=== PATIENT | female | born 1965 | race Caucasian/White ===

== ENCOUNTER → 2017-03-30 | Outpatient (CLI) | payer OTHER ==
[~2017-03-30] MED LIST: DIPH25CA PO; HYDR-3516 PO; LEVO.125 PO; MESA1TAB2 PO; ROSU1TAB4 PO
[2017-03-30 10:41] LABS: AUTOMATED NEUTROPHIL # 3.9 TH/MM3 (1.8-7.7); BASOPHIL # 0.1 TH/MM3 (0-0.2); EOSINOPHIL # 0.1 TH/MM3 (0-0.4); HEMATOCRIT 41.7 % (35.0-46.0); HEMO FLAGS DIFF FINAL; LYMPHOCYTE # 1.4 TH/MM3 (1.0-4.8); MEAN CELL VOLUME 90.9 FL (80.0-100.0); MEAN CORPUSCULAR HEMOGLOBIN 30.3 PG (27.0-34.0); MEAN CORPUSCULAR HGB CONC 33.3 % (32.0-36.0); MONO % 9.9 % (0.0-8.0); NEUT % 64.1 % (16.0-70.0); PLATELET COUNT 261 TH/MM3 (150-450); RED BLOOD COUNT 4.59 MIL/MM3 (4.00-5.30); WHITE BLOOD COUNT 6.1 TH/MM3 (4.0-11.0)
[2017-03-30 10:43] LABS: APTT (PATIENT) 26.6 SEC (24.3-30.1); INTERNATIONAL NORMALIZED RATIO 0.9 RATIO; PROTHROMBIN TIME - PATIENT 10.1 SEC (9.8-11.6)
[2017-03-30 10:46] LABS: BLOOD, URINE NEG (NEG); GLUCOSE,URINE NEG (NEG); KETONE, URINE NEG (NEG); NITRITE,URINE NEG (NEG); URINE COLOR LIGHT-YELLOW (YELLW/STRAW)
[2017-03-30 10:47] LABS: COMMENT (UR) CULT NOT INDICATED; CULTURE IF INDICATED CULT NOT INDICATED
[2017-03-30 11:22] LABS: ALT (GPT) 27 U/L (10-53); ANION GAP 7 MEQ/L (5-15); AST (GOT) 13 U/L (15-37); BICARBONATE 29.1 MEQ/L (21.0-32.0); BLOOD UREA NITROGEN 15 MG/DL (7-18); CHLORIDE 105 MEQ/L (98-107); GLOMERULAR FILTRATION RATE 78 ML/MIN (>89); POTASSIUM 3.6 MEQ/L (3.5-5.1); SODIUM (NA) 141 MEQ/L (136-145)
[2017-03-30 11:25] LABS: ALKALINE PHOSPHATASE 98 U/L (45-117); TOTAL BILIRUBIN ADULT 0.6 MG/DL (0.2-1.0)
--- NOTE | 2017-03-30 12:48 | RADRPT ---
EXAM DATE/TIME: 03/30/2017 10:55 [place] COMPARISON: No previous studies available for comparison. INDICATIONS : Evaluate for pneumonia, pneumothorax, or communicable disease. Pre-op, colon resection. MEDICAL HISTORY : Crohn's disease. SURGICAL HISTORY : None. ENCOUNTER: Initial ACUITY: 1 day PAIN SCORE: 0/10 LOCATION: Bilateral chest FINDINGS: PA and lateral views of the chest demonstrate the lungs to be symmetrically aerated without evidence of mass, infiltrate or effusion. The cardiomediastinal contours are unremarkable. Osseous structure s are intact. CONCLUSION: Negative for acute disease. Andrei Arguelles MD FACR on March 30, 2017 at 12:47 Board Certified Radiologist. This report was verified electronically.
== END ==
LOC: CPRE 09:41
PROVIDERS: ATTEND Colon & Rectal Surgery
DX: Z01.810 Encounter for preprocedural cardiovascular examination (principal); Z01.811 Encounter for preprocedural respiratory examination; Z01.812 Encounter for preprocedural laboratory examination; K52.9 Noninfective gastroenteritis and colitis, unspecified; K56.69 Other intestinal obstruction
CPT/HCPCS: 36415; 71020; 80053; 81001; 85025; 85610; 85730

== ENCOUNTER 2017-04-06 08:30 | Inpatient (IN) | payer OTHER ==
[~2017-04-06] VITALS: Ht 162.6 cm; Wt 73.2 kg
[~2017-04-06 08:30] MED LIST changes: -HYDR-3516 PO
[2017-04-13] MEDS ORDERED: POVIDONE IODINE 5% (ANTISEPSIS KIT) 4 APPLICATIONS EACH NARE PRN (06:15)
[2017-04-13] MEDS ORDERED: DEXT 5%-NACL 0.9% 1000 ML INJ 1,000 ML IV SCH (06:15)
[2017-04-13] MEDS ORDERED: INSULIN HUMAN REGULAR 1,000 UNITS/10 ML VIAL SQ PRN (06:15)
[2017-04-13] MEDS ORDERED: LACTATED RINGER'S 1000 ML IV PRN (06:15)
[2017-04-13] MEDS ORDERED: ceFAZolin 2 GM PREMIX 50 ML IV SCH (06:15)
[2017-04-13] MEDS ORDERED: SODIUM CHLORID 0.9% 500 ML IV PRN (06:15)
[2017-04-13] MEDS ORDERED: METOPROLOL TARTRATE 25 MG TAB PO PRN (06:15)
[2017-04-13] MEDS ORDERED: CHLORHEXIDINE GLUCONATE 2 % 1 PACK (2 CLOTHS) TOPICAL PRN (06:15)
[2017-04-13] MEDS ORDERED: ACETAMINOPHEN 1000 MG/100 ML 100 ML IV ONE (07:24)
[2017-04-13] MEDS ORDERED: HYDROmorphone HCL PF 2 MG/ML VIAL ONE (07:25)
[2017-04-13] MEDS ORDERED: SUGAMMADEX SODIUM 200 MG/2 ML VIAL IV PUSH ONE ×2 (07:25)
[2017-04-13] MEDS ORDERED: ARTIFICIAL TEARS OPTH OINT 3.5 APPLIC/3.5 GM TUBO ONE (07:25)
[2017-04-13] MEDS ORDERED: FAMOTIDINE 20 MG/2 ML VIAL ONE (07:25)
[2017-04-13] MEDS: METRONIDAZOLE 500 MG/100 ML ISONTONIC SOLN IV SCH ×2 (08:20→10:28)
--- NOTE | 2017-04-13 08:53 | PD.OP ---
Operative Report Date of Surgery: Apr 13, 2017 Preoperative Diagnosis: Crohn's disease Postoperative Diagnosis: Same Procedure: Cystoscopy with bilateral ureteral catheter insertion Anesthesia: GEOFF Surgeon: Jose A More Turner Machine Operator(s): None Resident Surgeon: None Operation and Findings: 52-year-old female with history of Crohn's disease to undergo exploratory laparotomy by Dr. Molina. Request for made for bilateral ureteral catheter insertion. Risk and benefits were discussed paraplegic is willing to proceed. Patient is brought to the operating room and placed in the dorsal lithotomy position. She is prepped and draped in usual sterile fashion received preprocedure antibiotics and general endotracheal tube anesthesia was administered. 22 Lithuanian scope was inserted in the bladder campbell cystoscopy did not reveal any abnormalities. Left ureteral orifice was identified and a 6 Lithuanian open-ended catheter inserted on the left side without difficulty this was again repeated on the right side with 5 Lithuanian open catheter. A Pereira catheter was then inserted and the catheters were attached to the Pereira catheter. She tolerated the procedure well. Jose A More DO Apr 13, 2017 08:53
[2017-04-13] MEDS ORDERED: LIDOCAINE HCL 1% 50 ML VIAL ONE (12:00)
[2017-04-13] MEDS ORDERED: PROPOFOL 200 MG/20 ML AMP IV ONE (12:00)
[2017-04-13] MEDS ORDERED: LACTATED RINGER'S 1000 ML INJ 2,000 ML IV ONE (12:00)
[2017-04-13] MEDS ORDERED: DEXAMETHASONE SOD PHOS 4 MG/ML VIAL IV ONE (12:00)
[2017-04-13] MEDS ORDERED: ONDANSETRON HCL 4 MG/2 ML VIAL IV PUSH ONE (12:00)
[2017-04-13] MEDS ORDERED: VECURONIUM BROMIDE 20 MG VIAL IV ONE (12:00)
[2017-04-13] MEDS ORDERED: SODIUM CHLORIDE 0.9% 20 ML VIAL IV ONE (12:00)
[2017-04-13] MEDS ORDERED: ceFAZolin INJ 1,000 MG VIAL IV ONE (12:00)
[2017-04-13] MEDS ORDERED: STERILE WATER FOR INJECTION 20 ML VIAL IV ONE (12:00)
[2017-04-13] MEDS ORDERED: ROCURONIUM INJ 50 MG/5 ML VIAL IV ONE (12:00)
[2017-04-13] MEDS ORDERED: MIDAZOLAM HCL 2 MG/2 ML VIAL IV ONE (12:00)
[2017-04-13] MEDS ORDERED: ESMOLOL HCL 100 MG/10 ML VIAL IV ONE (12:00)
[2017-04-13] MEDS ORDERED: NORMOSOL R INJ 1,000 ML IV ONE (12:00)
[2017-04-13] MEDS ORDERED: LABETALOL HCL 100 MG/20 ML VIAL IV ONE (12:00)
[2017-04-13] MEDS ORDERED: ceFAZolin INJ 1,000 MG VIAL ONE ×2 (13:06→16:56)
[2017-04-13] MEDS ORDERED: DO NOT ADM ANY ANTICOAGULANT DRUGS PRN (19:14)
[2017-04-13] MEDS ORDERED: ENALAPRILAT 1.25 MG/ML VIAL IV PRN (19:15)
[2017-04-13] MEDS ORDERED: ACETAMINOPHEN 325 MG TAB PO PRN (19:15)
[2017-04-13] MEDS ORDERED: ENALAPRILAT 2.5 MG/2 ML VIAL IV PRN (19:15)
[2017-04-13] MEDS ORDERED: POTASSIUM CHLOR 20 MEQ PREMIX 100 ML IV PRN (19:15)
[2017-04-13] MEDS ORDERED: SODIUM CHLORIDE 0.9% FLUSH 5 ML FLUSH IVF PRN (19:15)
[2017-04-13] MEDS ORDERED: BENZOCAINE 6 MG/MENTHOL 10 MG LOZENGE BUCCAL PRN (19:15)
[2017-04-13] MEDS ORDERED: POTASSIUM CHLOR 40 MEQ PREMIX 100 ML IV PRN (19:15)
[2017-04-13] MEDS ORDERED: NALOXONE HCL 0.4 MG/ML AMP IV PRN (19:15)
[2017-04-13] MEDS ORDERED: diphenhydrAMINE HCL 50 MG/ML VIAL IV PRN (19:15)
[2017-04-13] MEDS ORDERED: Post-op Orders (for Pharmacy) MISC XX ONE (19:15)
[2017-04-13] MEDS ORDERED: *morphine SULFATE 8 MG/ML PERIprocedure ONLY ONE (19:35)
[2017-04-13] MEDS ORDERED: *ONDANSETRON 4 MG VIAL PERIprocedural Use ONLY ONE (19:35)
[2017-04-13] MEDS ORDERED: D5-1/2 NS + KCL 20 MEQ INJ 1,000 ML ONE (19:38)
[2017-04-13] MEDS: D5-NS + KCL 20 MEQ INJ 1,000 ML IV SCH (19:55)
[2017-04-13] MEDS: metroNIDAZOLE 500 MG INJ 100 ML IV SCH (20:20)
[2017-04-13] MEDS: SODIUM CHLORIDE 0.9% FLUSH 5 ML FLUSH IVF SCH (20:20)
[2017-04-13] MEDS: MORPHINE SULFATE 30 MG/30 ML PCA IV SCH (20:24)
[2017-04-13 20:43] LABS: AUTOMATED NEUTROPHIL # 9.7 TH/MM3 (1.8-7.7); BASOPHIL % 0.1 % (0.0-2.0); HEMO FLAGS DIFF FINAL; LYMPH % 4.6 % (9.0-44.0); LYMPHOCYTE # 0.5 TH/MM3 (1.0-4.8); MEAN CELL VOLUME 90.5 FL (80.0-100.0); MEAN CORPUSCULAR HEMOGLOBIN 30.5 PG (27.0-34.0); MEAN CORPUSCULAR HGB CONC 33.7 % (32.0-36.0); MONO % 9.2 % (0.0-8.0); NEUT % 86.1 % (16.0-70.0); PLATELET COUNT 240 TH/MM3 (150-450); RED BLOOD COUNT 4.19 MIL/MM3 (4.00-5.30); RED CELL DISTRIBUTION WIDTH 14.2 % (11.6-17.2); WHITE BLOOD COUNT 11.3 TH/MM3 (4.0-11.0)
[2017-04-13 21:07] LABS: BICARBONATE 26.7 MEQ/L (21.0-32.0); POTASSIUM 3.6 MEQ/L (3.5-5.1)
[2017-04-14] VITALS (26 sets, daily range): BP systolic 104–127; BP diastolic 49–68; PULSE 69–99; RESP 12–20; TEMP 97.8–99.9; O2SAT 90–98
[2017-04-14] MEDS: D5-NS + KCL 20 MEQ INJ 1,000 ML IV SCH ×3 (02:40→22:40)
[2017-04-14] MEDS: metroNIDAZOLE 500 MG INJ 100 ML IV SCH ×2 (05:19→12:20)
[2017-04-14] MEDS: LEVOTHYROXINE SODIUM 125 MCG TAB PO SCH (05:20)
[2017-04-14 07:14] LABS: AUTOMATED NEUTROPHIL # 8.5 TH/MM3 (1.8-7.7); BASOPHIL # 0.1 TH/MM3 (0-0.2); BASOPHIL % 0.5 % (0.0-2.0); HEMATOCRIT 35.6 % (35.0-46.0); HEMO FLAGS DIFF FINAL; LYMPH % 11.4 % (9.0-44.0); LYMPHOCYTE # 1.3 TH/MM3 (1.0-4.8); MEAN CELL VOLUME 91.7 FL (80.0-100.0); MEAN CORPUSCULAR HEMOGLOBIN 30.4 PG (27.0-34.0); MEAN CORPUSCULAR HGB CONC 33.1 % (32.0-36.0); NEUT % 76.1 % (16.0-70.0); PLATELET COUNT 262 TH/MM3 (150-450); RED BLOOD COUNT 3.88 MIL/MM3 (4.00-5.30); WHITE BLOOD COUNT 11.2 TH/MM3 (4.0-11.0)
[2017-04-14 07:38] LABS: BICARBONATE 27.4 MEQ/L (21.0-32.0); POTASSIUM 3.6 MEQ/L (3.5-5.1)
[2017-04-14] MEDS: PCA - TOTAL MG MORPHINE DELIVERED PER SHIFT SCH ×3 (08:00→23:00)
[2017-04-14] MEDS: SODIUM CHLORIDE 0.9% FLUSH 5 ML FLUSH IVF SCH ×2 (09:00→21:00)
[2017-04-14] MEDS: PANTOPRAZOLE SODIUM 40 MG VIAL IVP SCH (09:08)
[2017-04-14] MEDS: MORPHINE SULFATE 30 MG/30 ML PCA IV SCH ×2 (09:09→17:31)
[2017-04-14] MEDS: ONDANSETRON HCL 4 MG/2 ML VIAL IV PRN ×2 (11:17→23:07)
--- NOTE | 2017-04-14 11:52 | HHI.PR ---
Subjective Remarks Nauseated. No vomiting. No BMs. Pain controlled. Objective Vital Signs Date Time Temp Pulse Resp B/P (MAP) Pulse Ox O2 Delivery O2 Flow Rate FiO2 04/14/17 11:16 90 18 124/57 (79) 96 04/14/17 10:00 90 04/14/17 09:09 18 04/14/17 09:00 86 04/14/17 08:00 88 04/14/17 07:45 99.8 95 20 109/58 (75) 96 04/14/17 07:00 86 04/14/17 06:00 82 04/14/17 05:00 84 04/14/17 04:00 69 04/14/17 03:00 74 04/14/17 03:00 98.6 83 12 112/49 (70) 94 04/14/17 01:00 98.6 80 14 104/56 (72) 95 04/14/17 00:00 76 15 106/57 (73) 95 Nasal Cannula 1 04/13/17 22:15 78 14 117/61 (79) 95 Nasal Cannula 1 04/13/17 21:30 81 12 110/61 (77) 95 Nasal Cannula 1 04/13/17 21:29 20 04/13/17 21:00 82 22 110/67 (81) 96 Nasal Cannula 1 04/13/17 20:30 82 9 117/63 (81) 96 Nasal Cannula 1 04/13/17 20:24 15 04/13/17 20:00 83 9 119/59 (79) 96 Nasal Cannula 3 04/13/17 19:45 83 10 110/56 (74) 95 Nasal Cannula 3 04/13/17 19:30 90 7 130/74 (92) 96 Nasal Cannula 3 04/13/17 19:26 98.0 95 10 123/71 (88) 94 Simple Mask 8 I/O 04/13/17 04/13/17 04/13/17 04/14/17 04/14/17 04/14/17 07:00 15:00 23:00 07:00 15:00 23:00 Intake Total 3100 ml 1367 ml Output Total 600 ml 350 ml Balance 2500 ml 1017 ml Intake Oral 240 ml IV Total 100 ml 1127 ml Other 3000 ml Output Urine Total 450 ml 350 ml Estimated Blood Loss 150 ml Result Diagram: 04/14/17 0457 04/14/17 0452 Objective Remarks VS-S Abd: soft,dressings dry Medications and IVs Stable POD#1 Left ureteral cath removed. Alfredito Dubois MD Apr 14, 2017 11:52
[2017-04-14] MEDS: HEPARIN SODIUM - SQ 10,000 UNITS/ML VIAL SQ SCH (17:30)
[2017-04-15] VITALS (17 sets, daily range): BP systolic 121–142; BP diastolic 68–88; PULSE 79–99; RESP 14–16; TEMP 98.2–99.3; O2SAT 88–92
[2017-04-15] MEDS: D5-NS + KCL 20 MEQ INJ 1,000 ML IV SCH ×2 (05:20→18:04)
[2017-04-15] MEDS: PCA - TOTAL MG MORPHINE DELIVERED PER SHIFT SCH (06:00)
[2017-04-15] MEDS: HEPARIN SODIUM - SQ 10,000 UNITS/ML VIAL SQ SCH ×2 (06:05→18:05)
[2017-04-15] MEDS: LEVOTHYROXINE SODIUM 125 MCG TAB PO SCH (06:05)
[2017-04-15 07:02] LABS: AUTOMATED NEUTROPHIL # 9.4 TH/MM3 (1.8-7.7); BASOPHIL % 0.3 % (0.0-2.0); EOSINOPHIL % 0.2 % (0.0-4.0); HEMATOCRIT 31.6 % (35.0-46.0); HEMO FLAGS DIFF FINAL; LYMPH % 7.3 % (9.0-44.0); LYMPHOCYTE # 0.8 TH/MM3 (1.0-4.8); MEAN CELL VOLUME 91.6 FL (80.0-100.0); MEAN CORPUSCULAR HEMOGLOBIN 30.3 PG (27.0-34.0); MEAN CORPUSCULAR HGB CONC 33.1 % (32.0-36.0); MONO % 9.7 % (0.0-8.0); NEUT % 82.5 % (16.0-70.0); PLATELET COUNT 201 TH/MM3 (150-450); RED BLOOD COUNT 3.44 MIL/MM3 (4.00-5.30); RED CELL DISTRIBUTION WIDTH 14.3 % (11.6-17.2); WHITE BLOOD COUNT 11.4 TH/MM3 (4.0-11.0)
[2017-04-15 07:17] LABS: POTASSIUM 4.2 MEQ/L (3.5-5.1)
[2017-04-15] MEDS: SODIUM CHLORIDE 0.9% FLUSH 5 ML FLUSH IVF SCH ×2 (09:00→21:00)
[2017-04-15] MEDS: ONDANSETRON HCL 4 MG/2 ML VIAL IV PRN (09:36)
[2017-04-15] MEDS: PANTOPRAZOLE SODIUM 40 MG VIAL IVP SCH (09:38)
--- NOTE | 2017-04-15 11:25 | HHI.PR ---
Subjective Remarks C/O nausea. No vomiting. No appetite. No BMs. Flat affect Objective Vital Signs Date Time Temp Pulse Resp B/P (MAP) Pulse Ox O2 Delivery O2 Flow Rate FiO2 04/15/17 10:00 80 04/15/17 09:00 82 04/15/17 08:00 98.7 96 16 142/86 (104) 91 04/15/17 08:00 84 04/15/17 07:00 80 04/15/17 06:00 88 04/15/17 05:00 84 04/15/17 04:00 86 04/15/17 03:00 99.3 96 16 127/75 (92) 91 04/15/17 03:00 86 04/15/17 02:00 84 04/15/17 01:00 86 04/15/17 00:00 88 04/14/17 23:00 93 04/14/17 23:00 97.9 95 20 127/68 (87) 90 04/14/17 23:00 24 04/14/17 22:00 88 04/14/17 21:00 88 04/14/17 20:49 92 Nasal Cannula 1.00 04/14/17 20:00 94 04/14/17 19:30 99.9 95 14 111/57 (75) 92 04/14/17 19:00 95 04/14/17 18:00 82 04/14/17 17:31 18 04/14/17 17:00 86 04/14/17 16:00 90 04/14/17 15:00 98.0 90 20 108/62 (77) 95 04/14/17 15:00 90 04/14/17 14:00 99 04/14/17 14:00 20 04/14/17 13:00 86 04/14/17 12:00 88 I/O 04/14/17 04/14/17 04/14/17 04/15/17 04/15/17 04/15/17 07:00 15:00 23:00 07:00 15:00 23:00 Intake Total 1367 ml 1660 ml 1740 ml Output Total 350 ml 1000 ml 275 ml Balance 1017 ml 660 ml 1465 ml Intake Oral 240 ml 360 ml 240 ml IV Total 1127 ml 1300 ml 1500 ml Output Urine Total 350 ml 1000 ml 275 ml Result Diagram: 04/15/17 0535 04/15/17 0535 Objective Remarks VS-S Abd: soft,dressings dry I&Os and labs -OK Assessment and Plan Assessment and Plan Stable POD#2 OOB,Decrease IVs, D/C [employer] for nausea, D/C tele and O2 Alfredito Dubois MD Apr 15, 2017 11:25
[2017-04-15] MEDS: ACETAMINOPHEN/HYDROcodone 325 MG/5 MG TAB PO PRN ×3 (11:44→23:48)
[2017-04-16] VITALS (9 sets, daily range): BP systolic 100–120; BP diastolic 55–72; PULSE 81–99; RESP 14–18; TEMP 98.3–99.5; O2SAT 88–94
[2017-04-16] MEDS: D5-NS + KCL 20 MEQ INJ 1,000 ML IV SCH (02:10)
[2017-04-16] MEDS: HEPARIN SODIUM - SQ 10,000 UNITS/ML VIAL SQ SCH ×2 (06:10→18:18)
[2017-04-16] MEDS: LEVOTHYROXINE SODIUM 125 MCG TAB PO SCH (06:10)
[2017-04-16 06:53] LABS: AUTOMATED NEUTROPHIL # 10.2 TH/MM3 (1.8-7.7); BASOPHIL % 0.2 % (0.0-2.0); EOSINOPHIL # 0.1 TH/MM3 (0-0.4); EOSINOPHIL % 0.5 % (0.0-4.0); HEMATOCRIT 30.3 % (35.0-46.0); HEMO FLAGS DIFF FINAL; LYMPH % 6.8 % (9.0-44.0); LYMPHOCYTE # 0.8 TH/MM3 (1.0-4.8); MEAN CELL VOLUME 91.5 FL (80.0-100.0); MEAN CORPUSCULAR HEMOGLOBIN 30.3 PG (27.0-34.0); MEAN CORPUSCULAR HGB CONC 33.1 % (32.0-36.0); MONO % 8.1 % (0.0-8.0); NEUT % 84.4 % (16.0-70.0); PLATELET COUNT 197 TH/MM3 (150-450); RED BLOOD COUNT 3.31 MIL/MM3 (4.00-5.30); RED CELL DISTRIBUTION WIDTH 14.2 % (11.6-17.2); WHITE BLOOD COUNT 12.1 TH/MM3 (4.0-11.0)
[2017-04-16 07:03] LABS: BICARBONATE 27.6 MEQ/L (21.0-32.0)
[2017-04-16] MEDS: ONDANSETRON HCL 4 MG/2 ML VIAL IV PRN ×2 (07:43→14:11)
[2017-04-16] MEDS: ACETAMINOPHEN/HYDROcodone 325 MG/5 MG TAB PO PRN ×3 (07:43→23:11)
[2017-04-16] MEDS: SODIUM CHLORIDE 0.9% FLUSH 5 ML FLUSH IVF SCH ×2 (09:00→21:00)
[2017-04-16] MEDS: PANTOPRAZOLE SODIUM 40 MG VIAL IVP SCH (10:47)
--- NOTE | 2017-04-16 12:17 | MP ---
cc: BATSHEVA MOLINA M.D., DATE OF SURGERY: April 13, 2017. PREOPERATIVE DIAGNOSIS 1. Crohn's disease. 2. Colon stricture. POSTOPERATIVE DIAGNOSIS 1. Crohn's disease. 2. Colon stricture. PROCEDURE 1. Robotic/laparoscopic extensive lysis of adhesions. 2. Robotic extended ascending colectomy with takedown of splenic flexure. 3. Robotic terminal ileum/cecal resection. SURGEON Batsheva Molina MD EARLY [employer] TEACHER Cristobal. ANESTHESIA General per ET tube. ESTIMATED BLOOD LOSS 150 ccs. 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 This has been followed for about 4 or 5 years and, with the chronic severe inflammation, became more and more concerning that this could not be evaluated for carcinoma. OPERATIVE COURSE The patient was brought to the operating room and placed in the supine position. After induction of general anesthesia, the patient was placed in Marvin stirrups and all bony prominences were carefully padded. Dr. More came in and performed cystoscopy with placement of bilateral ureteral catheters, please see his operative note for details. ' The camera port was then placed just below the umbilicus, this was a 10/12 port, placed under direct vision using the laparoscope. CO2 insufflation was then undertaken and a brief abdominal survey was performed, with nothing noted that would preclude the robotic approach. The patient had significant fat wrapping, as expected, along the length of the transverse colon and the terminal ileum, I was not really able to visualize the ascending colon very well at this point. The remainder of the trocars were placed as follows. Two 10/12 trocars were placed just above and inside the right and left superior anterior iliac spines. Two 8 da Paulino ports were placed equal distance between the lateral ports and the camera port, forming an arc facing cephalad. Adhesions of the omentum to the descending colon and abdominal wall were dissected free using electrocautery and the omentum was brought up-and-over the transverse colon. The patient was hydroplaned head slightly up and the robot was docked over the left shoulder. The omentum was pulled away from the transverse colon. Dissection continued in this plane until the lesser sac was entered on the left and dissection was continued up and around the splenic flexure. On the right side multiple attempts were made to enter the lesser sac but it was fused and so it was elected to just take that part of the mesentery with the bowel. At this point we had better visibility and the descending colon appeared free of disease. The ascending colon did as well but I was not sure whether or not there was enough length to make it worth while to perform two anastomoses, so dissection continued. The mesentery to the tranverse colon was then opened and the transverse mesocolon was divided using the vessel sealer, beginning at the mid transveres and working up and around the splenic flexure, freeing the splenic flexure.. This allowed free mobility of the distal transverse colon and proximal descending colon. Dissection then continued across the right side up to about half the distance over to the hepatic flexure. At this point the robot was undocked and re-docked over the right shoulder. The cecum and TI, which was noted to be quite diseased were then retracted cephalad and dissection was continued posteriorly, up to the level of the duodenum which was carefully dissected free from the undersurface of the transverse mesocolon. Dissection then continued laterally and the lateral peritoneal attachment of the cecum and ascending colon were then dissected free. I was able to get up and around the hepatic flexure but I had a lot of trouble getting the proximal transverse colon retracted so that I could adequately dissect this free. We were able to eventually do some of that dissection but I felt that perhaps a small incision in the right lower quadrant would assist us in finishing this dissection. The robot was undocked. A 10-12 cm transverse incision was made in the right lower quadrant incorporating the right middle port. Using electrocautery, dissection was carried down to the fascia of the anterior abdominal wall which was split the length of the skin incision. The lateral fibers of the rectus abdominis muscle were then divided using electrocautery and the posterior fascia/peritoneum was divided the length of the skin incision. Multiple attempts were made to do further freeing of the proximal transverse without much success. Eventually I elected to go ahead and proceed with my resection of the TI. A site was chosen for division of the ileum ,just proximal to the area of inflammation. The mesentery was divided at this level using the vessel sealer and a DESI 60 stapling device was placed across the bowel at this level. A site was chosen for division of the ascending colon, just proximal to the cecum. The mesentery was cleared and a reload of the DESI stapler was placed across the bowel at this level. The intervening mesentery was serially divided using 0 Vicryl ties. The antimesenteric corners of the staple line were then removed. One limb of the gastrointesstinal stapler was placed down each limb of the bowel. This was closed along the antimesenteric border, fired, and removed, thus creating an enteroenterotomy. The resulting enterotomy was closed transversely with the DESI 60 stapling device. A simple stay suture was placed at the distal end of the anastomosis. At this point, however, it was not clear whether we would still have enough length to pull the remaining colon over to the descending colon and we elected to go back to a minimally invasive approach. The wound was closed in two layers using 0 Vicryl suture and a Tegaderm was placed over the wound. CO2 insufflation was resumed and after evaluation I did not feel that the amount of tension that would be necessary to bring this over warranted maintaining this very short segment of bowel, so I elected to proceed with resection of that segment of bowel. The robot was re-docked over the right shoulder and the mesentery of the hepatic flexure and descending colon was divided using the vessel sealer. A site was chosen for division of the small bowel just proximal and the DESI stapler was placed across the bowel at this level. The specimen was then tucked into the right lower quadrant for further retrieval. The small bowel then came over and lay nicely against the descending colon. Three stay sutures were placed with 0 Silk suture, two proximally, on either side of the proposed staple line, and one 8-9 cm distally, to align the bowel appropriately for the anastomosis. Incisions were made in the bowel using electrocautery and the echelon Endo stapler was placed, one limb down each limb of the bowel. This was closed on the antimesenteric border, fired, and removed, thus creating an enteroenterotomy. A reload of the stapler was brought onto the field and was placed across the bowel, proximal to the main part of the anastomosis but distal to the previous enterotomies. This was closed, held for 30 seconds, fired and removed. A second load was necessary to transect the bowel. There was noted to be a small amount of bleeding on the edge of the anastomosis which was controlled using electrocautery and stopped fairly quickly. The anastomosis was evaluated and lay nicely without tension and was widely patent. A simple stay suture was placed in the distal end using 0 Vicryl suture. The peritoneal cavity was copiously irrigated with warm normal saline. The omentum was brought down to lay over the anastomosis and Lily was dusted over the omentum and the anastomosis, as she had some oozing through the inflammatory tissue. All dissection beds were examined with no sign of any significant bleeding. A wound bag was placed in the peritoneal cavity and both specimens were placed inside the wound bag. These were removed via the previous incision, and taken to the back table where they were later opened and sent for pathology. The wound was again closed in a double layer using 0 Vicryl suture and CO2 insufflation was resumed. The fascia at the #12 trocar sites were then closed using the crossbow device and 0 Vicryl suture. These sutures were placed but not closed until the CO2 was desufflated to the extent possible. CO2 was desufflated. The sutures were secured. The wounds were copiously irrigated with warm normal saline. The skin at the transverse incision was closed in a running subcuticular fashion using 3-0 Vicryl, and the wounds at the trocar sites were closed in an interrupted subcuticular fashion, using 3-0 Vicryl. Steri-Strips and sterile dressings were applied. All sponge, needle and instrument counts were correct and the patient was returned to the post anesthesia care unit in stable condition. MD CESAR Rasheed/DONI /7:22 PM /11:58 AM DEDRICK
--- NOTE | 2017-04-16 13:04 | HHI.PR ---
Subjective Remarks POD#3 s/p robotic extended ascending colectomy, terminal ileum resection, sore Objective Vital Signs Date Time Temp Pulse Resp B/P (MAP) Pulse Ox O2 Delivery O2 Flow Rate FiO2 04/16/17 11:00 98.4 82 16 120/72 (88) 94 04/16/17 08:43 16 04/16/17 07:00 98.3 88 16 109/65 (80) 90 04/16/17 03:00 99.1 99 14 107/63 (78) 90 04/15/17 23:00 99.3 99 16 126/76 (93) 91 04/15/17 19:00 98.7 92 14 121/68 (85) 92 04/15/17 17:05 98.2 96 16 132/72 (92) 88 I/O 04/15/17 04/15/17 04/15/17 04/16/17 04/16/17 04/16/17 07:00 15:00 23:00 07:00 15:00 23:00 Intake Total 1740 ml 1600 ml 990 ml Output Total 275 ml 900 ml 980 ml Balance 1465 ml 700 ml 10 ml Intake Oral 240 ml 625 ml 240 ml IV Total 1500 ml 975 ml 750 ml Output Urine Total 275 ml 900 ml 980 ml # Bowel Movements 0 Result Diagram: 04/16/17 0620 04/16/17 0620 Objective Remarks Abdomen soft, nondistended, tender wounds clean Assessment and Plan Assessment and Plan Doing well Mobilize HL IV Advance diet Mary Molina MD Apr 16, 2017 13:04
[2017-04-17] MEDS: HEPARIN SODIUM - SQ 10,000 UNITS/ML VIAL SQ SCH (05:32)
[2017-04-17] MEDS: LEVOTHYROXINE SODIUM 125 MCG TAB PO SCH (05:32)
[2017-04-17] MEDS: ACETAMINOPHEN/HYDROcodone 325 MG/5 MG TAB PO PRN ×2 (05:35→11:47)
[2017-04-17 08:00] VITALS: BP 98/54; PULSE 84; RESP 16; TEMP 98; O2SAT 94
--- NOTE | 2017-04-17 10:12 | HHI.PR ---
Subjective Remarks POD#4 s/p robotic extended ascending colectomy, terminal ileum resection, comfortable Objective Vital Signs Date Time Temp Pulse Resp B/P (MAP) Pulse Ox O2 Delivery O2 Flow Rate FiO2 04/17/17 08:00 98.0 84 16 98/54 (69) 94 04/16/17 20:00 98.3 91 18 114/59 (77) 93 04/16/17 19:00 99.1 81 16 100/55 (70) 94 04/16/17 17:22 16 04/16/17 15:00 98.9 82 16 120/72 (88) 94 04/16/17 11:00 98.4 82 16 120/72 (88) 94 I/O 04/16/17 04/16/17 04/16/17 04/17/17 04/17/17 04/17/17 07:00 15:00 23:00 07:00 15:00 23:00 Intake Total 990 ml 720 ml Output Total 980 ml 300 ml Balance 10 ml 420 ml Intake Oral 240 ml 720 ml IV Total 750 ml Output Urine Total 980 ml 300 ml # Voids 1 # Bowel Movements 0 Result Diagram: 04/16/17 0620 04/16/17 0620 Objective Remarks Abdomen soft, nondistended, tender wounds clean Assessment and Plan Assessment and Plan Doing well Home Mary Molina MD Apr 17, 2017 10:12
[2017-04-17] MEDS ORDERED: HYDR-3516 PO (10:15)
[2017-04-17] MEDS: PANTOPRAZOLE SODIUM 40 MG VIAL IVP SCH (10:50)
[2017-04-17] MEDS: SODIUM CHLORIDE 0.9% FLUSH 5 ML FLUSH IVF SCH (10:50)
--- NOTE | 2017-04-20 10:15 | MD ---
cc: BATSHEVA MACKAY M.D. ADMISSION DATE: 04/13/2017 DISCHARGE DATE: 04/17/2017 ADMISSION DIAGNOSIS 1. Crohn's disease. 2. Colon stricture. DISCHARGE DIAGNOSIS 1. Crohn's disease. 2. Colon stricture. PROCEDURE 1. Robotic/laparoscopic extensive lysis of adhesions. 2. Robotic extended ascending colectomy with takedown of splenic flexure. 3. Robotic terminal ileum/cecal resection. BRIEF HISTORY AND HOSPITAL COURSE The patient is a 52-year-old female with a long history of a tight stricture in her transverse colon secondary to Crohn's. She was admitted to the hospital on the 13 of April after an outpatient bowel prep, at which time she underwent the above-named procedures. Postoperatively she did well with rapid return of bowel and bladder function. She was discharged to home on postoperative day #4 with instructions to follow-up with myself in the office. Final pathology was not available at the time of discharge. MD CESAR Rasheed/FAUSTINA /10:13 AM /10:06 AM MTDPan
== END 2017-04-17 12:15 | disposition home or self-care (01) | DRG 330 ==
LOC: HSDI 04-13 05:34 → HCIN 04-14 00:29 → N07B 04-16 20:36
PROVIDERS: ADMIT Colon & Rectal Surgery; ATTEND Colon & Rectal Surgery
PROC: 0DNW4ZZ Release Peritoneum, Percutaneous Endoscopic Approach (ICD-10-PCS; 2017-04-13)
PROC: 8E0W4CZ Robotic Assisted Procedure of Trunk Region, Percutaneous Endoscopic Approach (ICD-10-PCS; 2017-04-13)
PROC: 0T788DZ Dilation of Bilateral Ureters with Intraluminal Device, Via Natural or Artificial Opening Endoscopic (ICD-10-PCS; 2017-04-13)
PROC: 0DBL4ZZ Excision of Transverse Colon, Percutaneous Endoscopic Approach (ICD-10-PCS; principal; 2017-04-13 07:53)
PROC: 0DTH4ZZ Resection of Cecum, Percutaneous Endoscopic Approach (ICD-10-PCS; 2017-04-13 07:53)
DX: K50.812 Crohn's disease of both small and large intestine with intestinal obstruction (principal); E03.9 Hypothyroidism, unspecified; E78.5 Hyperlipidemia, unspecified; Z87.891 Personal history of nicotine dependence
CPT/HCPCS: 80048; 85025; 86850; 86900; 86901; 88307; 88309; 94150; C1769; C9113; J0131; J0690; J1100; J1170; J1644; J2250; J2270; J2405; J3010; J3480; J7120